=== PATIENT | male | born 1975 | race Hispanic/Latino ===

== ENCOUNTER 2016-04-02 12:48 | Emergency (ER) | payer OTHER ==
[~2016-04-02] VITALS: Ht 175.3 cm; Wt 90.3 kg
[~2016-04-02 12:48] MED LIST: ANTIVERT 25MG #1 PAC PO; TAMIFLU 75MG75 MG PO; ZOFRAN 4 MG TABL4 MG PO
[2016-04-02 13:06] VITALS: BP 156/95
--- NOTE | 2016-04-02 13:57 | ED INFLUENZA/URI COMPLAINT ---
History of Present Illness General Chief Complaint: Upper Respiratory Sx/Fever Stated Complaint: FEVER,BODY ACHES SORE THROAT Source: patient, family Exam Limitations: no limitations Vital Signs & Intake/Output Vital Signs & Intake/Output Vital Signs Date Time Temp Pulse Resp B/P Pulse O2 O2 Flow FiO2 Ox Delivery Rate 04/02 1306 97.6 81 20 156/95 97 Room Air Allergies Coded Allergies: NO KNOWN ALLERGIES (04/02/16) Reconcile Medications No Known Home Medications Triage Note: TRIAGE: PT TO ER C/C FEVER, BODY ACHES, ITCHY THROAT, ITCHY EYES, DIARRHEA AND ABD PAIN. ITCHY EYES AND THROAT X 1 WK INTERMITTENT. OTHER S/S X 2 DAYS. Triage Nurses Notes Reviewed? yes HPI: Patient is a 40-year-old male presents for evaluation of nasal congestion, sore throat, intermittent abdominal pain. Symptoms 1 week. Abdominal pain is a cramping sensation currently is minimal, at times been severe. Subjective fevers earlier in the week which have since resolved. Positive sick contacts at home with similar symptoms. Patient with intermittent nausea, none currently. Associated diarrhea. Patient has not taken any medication for his symptoms today. Past History Travel History Traveled to [place] past 21 day No Medical History Any Pertinent Medical History? none Neurological: NONE EENT: NONE Cardiovascular: NONE Respiratory: NONE Gastrointestinal: NONE Hepatic: NONE Renal: NONE Musculoskeletal: NONE Psychiatric: NONE Endocrine: NONE Blood Disorders: NONE Cancer(s): NONE CUSTOMER ENGAGEMENT MANAGER/Reproductive: NONE Surgical History Surgical History: non-contributory Psychosocial History What is your primary language Lithuanian Tobacco Use: Quit >30 days ago ETOH Use: occasional use Illicit Drug Use: denies illicit drug use Family History Hx Contributory? No Review of Systems Review of Systems Constitutional: Reports: fever (resolved). EENTM: Reports: nasal congestion. Denies: throat pain. Respiratory: Reports: cough. Denies: short of breath. Cardiovascular: Denies: chest pain. GI: Reports: abdominal pain, nausea. Genitourinary: Reports: no symptoms. Musculoskeletal: Reports: no symptoms. Skin: Reports: no symptoms. Neurological/Psychological: Reports: headache. Hematologic/Endocrine: Reports: no symptoms. Immunologic/Allergic: Reports: no symptoms. Physical Exam Physical Exam General Appearance: well developed/nourished, alert, awake Head: atraumatic, normal appearance Eyes: Bilateral: normal appearance, PERRL, EOMI. Ears, Nose, Throat: normal ENT inspection, moist mucous membrane, hearing grossly normal, pharynx normal Neck: normal inspection, supple, full range of motion Respiratory: normal breath sounds, chest non-tender, no respiratory distress, lungs clear Cardiovascular: regular rate/rhythm Gastrointestinal: soft, non-tender Back: normal inspection, normal range of motion Extremities: normal inspection, normal range of motion Neurologic/Psych: no motor/sensory deficits, awake, alert, oriented x 3, normal gait, normal mood/affect Skin: intact, normal color, warm/dry Lymphatic: no anterior cervical kylie Core Measures Severe Sepsis Present: No Septic Shock Present: No Progress Differential Diagnosis: influenza, meningitis, otitis, pneumonia, pharyngitis, sinusitis Plan of Care: Orders Procedure Date/time Status RAPID VIRAL INFLUENZA A 04/02 1408 Complete Patient nontoxic-appearing, reports that symptoms are gradually improving over the past couple of days. I suspect that symptoms are viral in etiology, appears stable for discharge. ([facility]K,ASTRID) Initial ED EKG: none Departure Departure Time of Disposition: 1516 Disposition: HOME OR SELF CARE Condition: Stable Clinical Impression Primary Impression: Viral upper respiratory infection Referrals: JENNIFER WHITE MD (PCP/Family) Additional Instructions: Drink plenty fluids and rest. Follow-up with your primary doctor if no improvement by Tuesday. Return to emergency department if unable to stay hydrated, difficulty breathing, or worsening of symptoms. Departure Forms: Customer Survey General Discharge Information Prescriptions: Current Visit Scripts No Known Home Medications
== END 2016-04-02 15:33 ==
LOC: ERH 12:48
DX: J06.9 Acute upper respiratory infection, unspecified (principal)
CPT/HCPCS: 87804; 87804-59